=== PATIENT | male | born 1990 | race Asian ===

== ENCOUNTER 2024-11-02 13:44 | Emergency (ER) | payer MEDICAID ==
[~2024-11-02] VITALS: Ht 167.6 cm; Wt 70.0 kg
[2024-11-02 14:00] VITALS: O2SAT 98
[2024-11-02 15:33] LABS: BASOPHILS % 0.8 % (0.0-2.0); EOSINOPHILS % 7.9 % (0.0-5.0); HEMOGLOBIN. 14.7 g/dL (14.0-18.0); LYMPHOCYTES % 35.4 % (20.0-50.0); MEAN CORPUSCULAR HEMOGLOBIN 26.4 pg (28.0-32.0); MEAN CORPUSCULAR HGB CONC 31.9 g/dL (31.0-37.0); MEAN CORPUSCULAR VOLUME 82.9 fL (80.0-94.0); MEAN PLATELET VOLUME 8.6 fl (7.4-10.4); MONOCYTES % 8.5 % (2.0-8.0); NEUTROPHILS % 47.4 % (40.0-76.0); PLATELET 263 x1000/uL (130-400); RED BLOOD CELL COUNT 5.54 mill/uL (4.7-6.1); RED CELL DISTRIBUTION WIDTH 13.7 % (11.6-14.6); WHITE BLOOD COUNT 9.2 x1000/uL (4.5-11.0)
[2024-11-02 15:41] LABS: CHLORIDE 104 mEq/L (98-107); POTASSIUM 4.3 mEq/L (3.5-5.1); SODIUM 142 mEq/L (136-145)
[2024-11-02 15:42] LABS: CALCIUM 9.5 mg/dL (8.7-10.4); CARBON DIOXIDE 28 mEq/L (21-32)
[2024-11-02 15:47] LABS: GLUCOSE 94 mg/dL (70-105); UREA NITROGEN BLOOD 20 mg/dL (9-23)
[2024-11-02 15:49] LABS: ALANINE AMINOTRANSFERASE 18 IU/L (10-49); ALBUMIN 4.2 g/dL (3.2-4.8); ASPARTATE AMINOTRANSFERASE 15 IU/L (<34); BILIRUBIN TOTAL 0.2 mg/dL (0.1-1.0); PROTEIN TOTAL 6.9 g/dL (6.0-8.3)
[2024-11-02 15:55] LABS: BILIRUBIN DIRECT < 0.1 mg/dL (<=3.0)
[2024-11-02 16:28] LABS: CLARITY URINE CLEAR (CLEAR); COLOR URINE YELLOW (YELLOW); GLUCOSE URINE NEGATIVE (NEGATIVE); KETONES URINE NEGATIVE (NEGATIVE); LEUKOCYTE ESTERASE URINE NEGATIVE (NEGATIVE); NITRITE URINE NEGATIVE (NEGATIVE); OCCULT BLOOD URINE NEGATIVE (NEGATIVE); PH URINE 6.5 (4.5-8.0); PROTEIN URINE NEGATIVE (NEGATIVE); SPECIFIC GRAVITY URINE 1.021 (1.005-1.030)
[2024-11-02 16:58] VITALS: BP 126/76; PULSE 93; RESP 18; TEMP 36.7; O2SAT 98
== END 2024-11-02 16:59 | disposition home or self-care (01) ==
LOC: ER 13:57
DX: R10.32 Left lower quadrant pain (principal)
CPT/HCPCS: 36415; 76770; 80048; 80076; 81003; 85025; 99284